=== PATIENT | male | born 1965 | race Native Hawaiian/Other Pacific Islander ===

== ENCOUNTER 2018-03-02 15:55 | Emergency (ER) | payer OTHER ==
[2018-03-02 16:05] VITALS: RESP 18; O2SAT 98
[2018-03-02] MEDS ORDERED: Sodium Chloride 0.9% 1,000 ML IV STA (16:13)
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
[2018-03-02 16:51] LABS: ALB/GLOB RATIO 1.2 (1.0-2.1); ALBUMIN 4.8 g/dL (3.5-5.0); ALT/SGPT 51 U/L (21-72); AST/SGOT 30 U/L (17-59); BLOOD UREA NITROGEN 22 mg/dl (9-20); GFR AFRICAN-AMERICAN 52; GFR NON-AFRICAN AMERICAN 43
[2018-03-02 17:07] LABS: BASO % 0.2 % (0.0-2.0); EOS # 0.1 K/uL (0.0-0.7); EOS % 0.6 % (0.0-4.0); LYMPH # 1.8 K/uL (1.0-4.3); LYMPH % 15.5 % (20.0-40.0); MEAN CELL VOLUME 86.9 fl (80.0-94.0); MEAN CORPUSCULAR HEMOGLOBIN 29.8 pg (27.0-31.0); MEAN CORPUSCULAR HGB CONC 34.3 g/dL (33.0-37.0); MONO # 0.6 K/uL (0.0-0.8); MONO % 5.4 % (0.0-10.0); NEUT # 8.9 K/uL (1.8-7.0); NEUT % 78.3 % (50.0-75.0); NRBC % 0.2 % (0.0-0.0); RBC 6.05 Mil/uL (4.40-5.90); WHITE BLOOD COUNT 11.3 K/uL (4.8-10.8)
[2018-03-02] MEDS ORDERED: Sod Polystyrene Sulf 15 gm/60 ml Susp PO ONE (17:31)
[2018-03-02 18:08] VITALS: BP 120/76; PULSE 78; TEMP 96.6
--- NOTE | 2018-03-03 13:07 | CARD ---
APPROVED REPORT EKG Measurement Heart [id number] HI [id number] <Conclusion> Sinus tachycardia Nonspecific T wave abnormality Abnormal ECG
== END 2018-03-02 18:15 | disposition home or self-care (01) ==
LOC: H.ER 15:55
DX: R55 Syncope and collapse (principal); E87.5 Hyperkalemia; N18.9 Chronic kidney disease, unspecified; R73.9 Hyperglycemia, unspecified; R94.31 Abnormal electrocardiogram [ECG] [EKG]
CPT/HCPCS: 80053; 82948; 83735; 84100; 84484; 85025; 93005; 99285; J7030